=== PATIENT | female | born 1955 | race Caucasian/White ===

== ENCOUNTER → 2018-02-27 | Outpatient (CLI) | END | disposition home or self-care (01) ==

== ENCOUNTER → 2018-06-19 | Outpatient (CLI) | END | disposition home or self-care (01) ==

== ENCOUNTER 2018-06-21 09:54 | Inpatient (IN) | END 2018-06-23 19:45 | disposition home health service (06) | DRG 470 ==

== ENCOUNTER → 2018-10-24 | Outpatient (CLI) | payer OTHER ==
[~2018-10-24] MED LIST: ALBU18HF INHALATION; ATOR20TA38 PO; FLUO20CA22 PO; HYDR25TA6 PO; INSU100I12 SQ; INSU100I33 SC; LEVO175T38 PO; METF100010 PO; OXYB5TAB7 PO; TELM20TA7 PO; TIOT4MIS4 INHALATION
--- NOTE | 2018-10-24 16:43 | HKNOTE ---
DATE OF SERVICE: 10/24/2018 HISTORY OF PRESENT ILLNESS: Ms. Barbosa is 3 months status post left total knee arthroplasty. She st ates that she recently had a car door hit her left knee. She does not use any assistive devices. Sh connie does not take any pain medications. She denies any recent infections. PHYSICAL EXAMINATION: Left knee: Healed incision. A 0 to 105 degrees range of motion, stable to varus valgus stress. A 5 /5 function of quadriceps, tibialis anterior, gastrocsoleus. IMAGING: X-rays of the left knee demonstrate the implant to be in acceptable alignment. The tibial component is in slight varus alignment. There are no fractures, dislocations or loosening. IMPRESSION: A 63-year-old female 3 months status post a left total knee arthroplasty. PLAN: Ms. Barbosa did not perform any outpatient therapy after her total knee arthroplasty since she did not have time. She was instructed on home exercises. She can continue to be weightbearing as to lerated. She will follow up in 06/2019 for her 1 year followup. Dictated By: TIFFANI PHAM/GAMA Conf#: [id number] DID#: [id number]
--- NOTE | 2018-10-25 08:36 | RADRPT ---
PROCEDURE: Left knee x-ray CLINICAL INDICATION: PAIN TECHNIQUE: Weightbearing AP, lateral and sunrise views of the left knee were obtained. COMPARISON: None FINDINGS: The patient is status post total knee replacement . Interval resolution of the pneumarthrosis and s ubcutaneous emphysema. Intact total knee prosthesis with anatomic alignment. There is normal mineralization. No acute fracture or dislocation is seen. IMPRESSION: Intact left knee prosthesis. No evidence of complication. [facility] Physician Tabitha Date Time Electronically viewed and signed by Physician Tabitha on 10/25/2018 08:36 CS/
== END | disposition home or self-care (01) ==
LOC: HKI 14:11
PROVIDERS: ATTEND Orthopaedic Surgery Adult Reconstructive Orthopaedic Surgery
DX: Z09 Encounter for follow-up examination after completed treatment for conditions other than malignant neoplasm (principal); Z96.652 Presence of left artificial knee joint
CPT/HCPCS: 73562; Z7500; G0463